=== PATIENT | female | born 1955 | race Caucasian/White ===

== ENCOUNTER 2016-10-20 12:26 | Emergency (ER) | payer OTHER | END 2016-10-20 16:10 | disposition home or self-care (01) | LOC: ER 12:26 | DX: M62.81 Muscle weakness (generalized) (principal); M79.652 Pain in left thigh; R42 Dizziness and giddiness; K59.00 Constipation, unspecified; E11.65 Type 2 diabetes mellitus with hyperglycemia; R80.9 Proteinuria, unspecified; F32.9 Major depressive disorder, single episode, unspecified; F17.210 Nicotine dependence, cigarettes, uncomplicated | CPT/HCPCS: 36415; 96361; 96374 ==